=== PATIENT | female | born 1990 | race Caucasian/White ===

== ENCOUNTER → 2019-01-04 | Outpatient (CLI) | payer BC, MEDICAID ==
[~2019-01-04] MED LIST: AZIT-21 PO; FERR-57 PO; ONDAN4ODT PO; PHEN200T27 PO; PREN1TAB39 PO; SULF1TAB35 PO
--- NOTE | 2019-01-04 17:05 | Diagnostic Imaging Report ---
INDICATION: Chronic left hip pain and popping. TIME OF EXAM: 3:14 p.m. FINDINGS: Two views of the left hip were obtained. Femoroacetabular alignment is normal. The joint space is well maintained. The femoral head and neck are intact. No fractures are seen. Left-sided rami are intact. IMPRESSION: No acute bony abnormality is detected. Dictated by: Dictated on workstation # [id number]
== END ==
LOC: RAD 14:03
PROVIDERS: ATTEND Family Medicine
DX: G89.29 Other chronic pain (principal); M25.552 Pain in left hip
CPT/HCPCS: 73502

== ENCOUNTER 2021-03-04 14:32 | Emergency (ER) | payer BC, MEDICAID ==
[~2021-03-04] VITALS: Ht 167 cm; Wt 47.6 kg
--- OUTSIDE RECORDS SUMMARY | 2021-03-04 14:36 | XMS REPORT | Clinical Summary ---
Author Author [facility] Organization [facility] Address Unknown Phone Unavailable Care Team Providers Care Junior Technical Writer Name Role Phone Kyree Novoa MD PCP Source Comments Some departments are not documenting in the electronic medical record. If you d o not see the information that you expected, contact Release of Information in [facility] [employer] Information Management department at [phone] for further assistan ce in locating additional records.[facility] Allergies No Known Active Allergies Medications No known medications Active Problems No known active problems Surgical History Surgery Date Site/Laterality Comments APPENDECTOMY Medical History Medical History Date Comments Anemia Family History Medical History Relation Name Comments Cancer Maternal Grandfather Heart Disease Maternal Grandfather Diabetes Maternal Grandmother Heart Disease Maternal Grandmother Stroke Maternal Grandmother Heart Disease Mother Heart Disease Paternal Grandfather Heart Disease Paternal Grandmother Relation Name Status Comments Maternal Grandfather Maternal Grandmother Mother Paternal Grandfather Paternal Grandmother Social History Date Tobacco Use Types Packs/Day Years Used Never Smoker Smokeless Tobacco: Never Used Comments Alcohol Use Standard Drinks/Week Yes 0 (1 standard drink = 0.6 o z pure alcohol) Sex Assigned at Date Recorded Not on file Last Filed Vital Signs Reading Time Taken Comments Vital Sign 127/90 06/10/2019 1:34 PM [facility] Blood Pressure 87 06/10/2019 1:34 PM [facility] Pulse 37.2 C (99 F) 06/10/2019 1:34 PM [facility] Temperature 16 06/10/2019 1:34 PM [facility] Respiratory Rate 100% 06/10/2019 1:34 PM [facility] Oxygen Saturation - - Inhaled Oxygen Concentration 48.4 kg (106 lb 12.8 oz) 06/10/2019 1:34 PM [facility] Weight 167.6 cm (5' 6") 06/10/2019 1:34 PM [facility] Height 17.24 06/10/2019 1:34 PM [facility] Body Mass Index Plan of Treatment Health Maintenance Due Date Last Done Comments HIV SCREENING 2006 DTAP/TDAP VACCINES (1 - 2009 Tdap) HEPATITIS C SCREENING 2009 PHYSICAL (COMPREHENSIVE) 2009 EXAM CERVICAL CANCER SCREENING 02/24/2012 INFLUENZA VACCINE 12/24/2020 Results Not on filefrom Last 3 Months Insurance Type Payer Benefit Subscriber ID Effective Phone Address Plan / Dates [facility] [id number] 2018-P [facility] resent BLUE Advance Directives Patient [employer] Explanation Type Date Recorded Advance Directive/DPOA
[2021-03-04] MEDS ORDERED: PROMETHAZINE INJ 25 MG/ML (PHENERGAN) AMP IVP ONE (14:45)
[2021-03-04] MEDS ORDERED: LACTATED RINGERS 1,000 ML IV SCH (14:45)
--- NOTE | 2021-03-04 14:47 | ED Abdominal Pain ---
General Chief Complaint: Abdominal/GI Problems Stated Complaint: N/V,ABD PAIN Source of Information: Patient Exam Limitations: No Limitations History of Present Illness Date Seen by Provider: Mar 04, 2021 Time Seen by Provider: 14:45 Initial Comments To ER with diffuse abdominal pain nausea vomiting and diarrhea after drinking alcohol last night which she does not normally do. No fevers or chills. Timing/Duration: 1-2 Days Severity/Quality: Moderate Location: Generalized Abdomen Radiation: No Radiation Activities at Onset: None Associated Symptoms: Nausea/Vomiting Allergies and Home Medications Allergies Coded Allergies: No Known Drug Allergies (Unverified , 06/04/09) Patient Home Medication List Home Medication List Reviewed: Yes Ferrous Sulfate (Ferrous Sulfate) 325 Mg Tablet, 325 MG PO BID, (Reported) Entered as Reported by: NITESH APODACA on 09/05/12 1321 Vits W-Ca,Fe,Fa(<1MG) () 1 Each Tablet, 1 EACH PO DAILY, (Reported) Entered as Reported by: GUALBERTO SONI on 05/26/10 0951 Review of Systems Review of Systems Constitutional: see HPI EENTM: No Symptoms Reported Respiratory: No Symptoms Reported Cardiovascular: No Symptoms Reported Gastrointestinal: See HPI, Abdominal Pain Musculoskeletal: no symptoms reported Skin: no symptoms reported Psychiatric/Neurological: No Symptoms Reported Endocrine: No Symptoms Reported Hematologic/Lymphatic: No Symptoms Reported Past Dlodmil-Gnqiwo-Yimntt Hx Immunizations Up To Date Tetanus Booster (TDap): Less than 5yrs Past Medical History Reproductive Disorders: No Female Reproductive Disorders: Denies Sexually Transmitted Disease: No HIV/AIDS: No UTI-Chronic Loss of Vision: Denies Hearing Impairment: Denies Adverse Reaction/Blood Tranf: No Physical Exam Vital Signs Vital Signs - First Documented 03/04/21 14:36 Temp 35.8 Pulse 91 Resp 18 B/P (MAP) 128/89 (102) Pulse Ox 98 O2 Delivery Room Air Capillary Refill : Height/Weight/BMI Height: '" Weight: lbs. oz. kg; BMI Method: General Appearance: WD/WN, no apparent distress, thin Respiratory: no respiratory distress, no accessory muscle use Cardiovascular: regular rate, rhythm, no murmur Gastrointestinal: normal bowel sounds, non tender, soft Extremities: normal range of motion, non-tender Neurologic/Psychiatric: alert, normal mood/affect, oriented x 3 Skin: normal color, warm/dry Progress/Results/Core Measures Results/Orders Lab Results Laboratory Tests Test 03/04/21 14:40 Range/Units White Blood Count 10.9 4.3-11.0 10^3/uL Red Blood Count 4.54 3.80-5.11 10^6/uL Hemoglobin 14.3 11.5-16.0 g/dL Hematocrit 44 35-52 % Mean Corpuscular Volume 96 80-99 fL Mean Corpuscular Hemoglobin 32 25-34 pg Mean Corpuscular Hemoglobin Concent 33 32-36 g/dL Red Cell Distribution Width 13.1 10.0-14.5 % Platelet Count 295 130-400 10^3/uL Mean Platelet Volume 10.3 9.0-12.2 fL Immature Granulocyte % (Auto) 1 % Neutrophils (%) (Auto) 78 H 42-75 % Lymphocytes (%) (Auto) 17 12-44 % Monocytes (%) (Auto) 4 0-12 % Eosinophils (%) (Auto) 0 0-10 % Basophils (%) (Auto) 0 0-10 % Neutrophils # (Auto) 8.6 H 1.8-7.8 10^3/uL Lymphocytes # (Auto) 1.9 1.0-4.0 10^3/uL Monocytes # (Auto) 0.4 0.0-1.0 10^3/uL Eosinophils # (Auto) 0.0 0.0-0.3 10^3/uL Basophils # (Auto) 0.0 0.0-0.1 10^3/uL Immature Granulocyte # (Auto) 0.1 0.0-0.1 10^3/uL Sodium Level 140 135-145 MMOL/L Potassium Level 3.9 3.6-5.0 MMOL/L Chloride Level 108 H 98-107 MMOL/L Carbon Dioxide Level 19 L 21-32 MMOL/L Anion Gap 13 5-14 MMOL/L Blood Urea Nitrogen 11 7-18 MG/DL Creatinine 0.69 0.60-1.30 MG/DL Estimat Glomerular Filtration Rate 100 BUN/Creatinine Ratio 16 Glucose Level 135 H 70-105 MG/DL Calcium Level 9.8 8.5-10.1 MG/DL Corrected Calcium 8.5-10.1 MG/DL Total Bilirubin 0.4 0.1-1.0 MG/DL Aspartate Amino Transf (AST/SGOT) 18 5-34 U/L Alanine Aminotransferase (ALT/SGPT) 26 0-55 U/L Alkaline Phosphatase 46 40-136 U/L Total Protein 7.7 6.4-8.2 GM/DL Albumin 4.7 H 3.2-4.5 GM/DL Lipase 17 8-78 U/L Serum Test, Qualitative NEGATIVE NEGATIVE My Orders Orders - SHELIA GILL APRN Cbc With Automated Diff (03/04/21 14:45) Lipase (03/04/21 14:45) Ua Culture If Indicated (03/04/21 14:45) Hcg,Qualitative Serum (03/04/21 14:45) Comprehensive Metabolic Panel (03/04/21 14:45) Ed Iv/Invasive Line Start (03/04/21 14:45) Promethazine Injection (Phenergan Injec (03/04/21 14:45) Lactated Ringers (Lr 1000 Ml Iv Solution (03/04/21 14:45) Antacid Suspension (Mylanta Suspension (03/04/21 15:45) Lidocaine 2% Viscous 15 Ml (Xylocaine Vi (03/04/21 15:45) Medications Given in ED Current Medications Medications Dose Ordered Sig/Benitez Route Start Time Stop Time Status Last Admin Dose Admin Al Hydrox/Mg Hydrox/Simethicone 30 ml ONCE ONCE PO 03/04/21 15:45 03/04/21 15:46 DC 03/04/21 15:53 30 ML Lidocaine HCl 15 ml ONCE ONCE PO 03/04/21 15:45 03/04/21 15:46 DC 03/04/21 15:53 15 ML Promethazine HCl 25 mg ONCE ONCE IVP 03/04/21 14:45 03/04/21 14:46 DC 03/04/21 15:07 25 MG Vital Signs/I&O 03/04/21 14:36 Temp 35.8 Pulse 91 Resp 18 B/P (MAP) 128/89 (102) Pulse Ox 98 O2 Delivery Room Air Departure Impression Primary Impression: Nausea and vomiting Disposition: 01 HOME, SELF-CARE Condition: Stable Departure-Patient Inst. Decision time for Depature: 16:09 Referrals: KAYLA MERIDA MD (PCP/Family) Primary Care Physician Patient Instructions: Nausea and Vomiting, Adult Add. Discharge Instructions: All discharge instructions reviewed with patient and/or family. Voiced understanding. Scripts Ondansetron (Ondansetron Odt) 8 Mg Tab.rapdis 8 MG PO Q6H PRN for NAUSEA/VOMITING, #10 TAB Prov: SHELIA GILL APRN 03/04/21 SHELIA GILL APRN Mar 04, 2021 14:47
[2021-03-04 14:53] LABS: BASOPHILS % (AUTO) 0 % (0-10); EOSINOPHILS % (AUTO) 0 % (0-10); HEMATOCRIT 44 % (35-52); HEMOGLOBIN 14.3 g/dL (11.5-16.0); LYMPHOCYTES # (AUTO) 1.9 10^3/uL (1.0-4.0); LYMPHOCYTES % (AUTO) 17 % (12-44); MEAN CORPUSCULAR HEMOGLOBIN 32 pg (25-34); MEAN CORPUSCULAR HGB CONC 33 g/dL (32-36); MEAN CORPUSCULAR VOLUME 96 fL (80-99); MEAN PLATELET VOLUME 10.3 fL (9.0-12.2); MONOCYTES # (AUTO) 0.4 10^3/uL (0.0-1.0); MONOCYTES % (AUTO) 4 % (0-12); NEUTROPHILS # (AUTO) 8.6 10^3/uL (1.8-7.8); NEUTROPHILS % (AUTO) 78 % (42-75); PLATELET COUNT 295 10^3/uL (130-400); WHITE BLOOD COUNT 10.9 10^3/uL (4.3-11.0)
[2021-03-04 14:56] LABS: ALBUMIN 4.7 GM/DL (3.2-4.5); CHLORIDE 108 MMOL/L (98-107); POTASSIUM 3.9 MMOL/L (3.6-5.0); SODIUM 140 MMOL/L (135-145)
[2021-03-04 14:57] LABS: CALCIUM 9.8 MG/DL (8.5-10.1)
[2021-03-04 14:58] LABS: GLUCOSE 135 MG/DL (70-105)
[2021-03-04 14:59] LABS: TOTAL PROTEIN 7.7 GM/DL (6.4-8.2)
[2021-03-04 15:00] LABS: BILIRUBIN,TOTAL 0.4 MG/DL (0.1-1.0); CARBON DIOXIDE 19 MMOL/L (21-32)
[2021-03-04 15:02] LABS: ALKALINE PHOSPHATASE 46 U/L (40-136); CREATININE SERUM 0.69 MG/DL (0.60-1.30); GFR ESTIMATED 100
[2021-03-04 15:03] LABS: BUN/CREATININE RATIO 16
[2021-03-04 15:05] LABS: ALANINE AMINOTRANSFERASE 26 U/L (0-55)
[2021-03-04 15:06] LABS: LIPASE 17 U/L (8-78)
[2021-03-04] MEDS ORDERED: ANTACID SUSP 30 ML UDC (MYLANTA) PO ONE (15:45)
[2021-03-04] MEDS ORDERED: LIDOCAINE 2% VISCOUS 15 ML UDC PO ONE (15:45)
[2021-03-04] MEDS ORDERED: ONDA8TAB13 PO (16:10)
[2021-03-04 16:24] LABS: BILIRUBIN,URINE NEGATIVE (NEGATIVE); CLARITY,URINE SL CLOUDY; COLOR,URINE YELLOW; GLUCOSE, URINE (UA) NEGATIVE (NEGATIVE); KETONES,URINE 1+ (NEGATIVE); LEUKOCYTE ESTERASE ,URINE NEGATIVE (NEGATIVE); NITRITE,URINE NEGATIVE (NEGATIVE); PROTEIN,URINE 1+ (NEGATIVE)
[2021-03-04 16:33] LABS: BACTERIA,URINE TRACE /HPF
[2021-03-04] MEDS ORDERED: cefTRIAXone 1,000 MG in WATER (STERILE) FOR INJECTION 10 ML IV ONE (16:45)
[2021-03-04 16:57] VITALS: BP 120/70
== END 2021-03-04 16:57 | disposition home or self-care (01) ==
LOC: EDUNIT# 14:32 → ER 14:33
DX: R11.2 Nausea with vomiting, unspecified (principal); Z32.02 Encounter for pregnancy test, result negative
CPT/HCPCS: 36415; 80053; 81000; 83690; 84703; 85025; 87088